=== PATIENT | female | born 2000 | race Hispanic/Latino ===

== ENCOUNTER 2024-05-19 21:31 | Emergency (ER) | payer SELFPAY ==
[2024-05-19 21:33] VITALS: BP 130/85
[2024-05-19 21:53] LABS: Urine Albumin Negative (Neg - Trace); Urine Bilirubin Negative (Negative); Urine Character Clear (Clear); Urine Color Straw; Urine Glucose Negative (Negative); Urine Ketone Negative (Negative); Urine Leukocyte Negative (Negative); Urine Nitrite Negative (Negative); Urine Occult Blood 1+ (Negative); Urine Specific Gravity 1.005 (<1.030); Urine Urobilinogen Negative (Neg - 1+)
[2024-05-19 21:54] LABS: HCG, Urine Qualitative Screen Positive
[2024-05-19 22:08] LABS: Urine Squamous Cell 0-2 /LPF (Few)
[2024-05-19 22:09] LABS: Urine Bacteria Few (Negative); Urine White Cell 0-2 /HPF (0-5)
--- NOTE | 2024-05-19 22:28 | ED.GENMED ---
History of Present Illness
<JJ Powers - Last Filed: 05/20/24 03:07>
General
Chief Complaint: Problems
Source: patient and computer customer support specialist
Time Seen by Provider: 05/19/24 21:56
Nursing documentation reviewed up to this point in time: agreed with
History of Present Illness
History of Present Illness:
Pt is a 23 y/o F who is seen with person investigator who presents with complaints of spotting x1hr. She had a positive test 2 days ago. The pt reported that she had vaginal bleeding that was more rapid and in a larger quantity than her normal
periods. She noticed some 'brown parts' and some brighter blood than normal. She normally has periods at regular intervals with varying amounts of blood. LMP was 03/26/24. She has associated headaches and intermittent dizziness and lightheadedness.
The pt reports that she has had diffuse abdominal pain for the past few days. The worst area of pain is epigastric and she feels 'shuffling'. The abdominal pain is described as a cramping sensation and is rated a 7/10 in severity. The abdominal pain
is worse when she is eating. The was unplanned and she is not taking any control.
Past History
<JJ Powers - Last Filed: 05/20/24 03:07>
Past History
ED Past Medical History: None
ED Past Surgical History: None
Social History
Tobacco: Non-smoker
Alcohol: None
Drug: None
Family History
Family History: Diabetes and Hypertension
Review of Systems
<JJ Powers - Last Filed: 05/20/24 03:07>
Review of Systems
Allergies reviewed?: Yes
Constitutional: Reports no symptoms
EENT: Reports no symptoms
Respiratory: Reports no symptoms
Cardiac: Reports no symptoms
ABD/GI: Reports abdominal pain
: Reports bleeding
Musculoskeletal: Reports no symptoms
Skin: Reports no symptoms
Neurological: Reports dizzy, headache and other (lightheadedness)
Endocrine: Reports no symptoms
Hematologic/Lymphatic: Reports no symptoms
Psychiatric: Reports no symptoms
Phy Exam
<JJ Powers - Last Filed: 05/20/24 03:07>
General Physical Exam
General Presentation: well appearing and no apparent distress
General age: appears stated age
General Skin: warm and dry
General Habitus: normal
General Mental: alert
General Hydration: appears well hydrated
ENT Exam
ENT Exam: EOMI, neck supple and normocephalic
Eye Exam
Eye Exam: PERRL, EOMI, cornea clear, conjunctiva normal and visual edmond normal
Cardiovascular Exam
Cardiovascular Exam: regular rate/rhythm, normal peripheral pulses and tachycardia
Pulmonary Exam
Pulmonary Exam: lungs clear, no respiratory distress, no rales, chest non tender, no crackles, no rhonchi, no stridor, no wheezing and no cough
Gastrointestinal Exam
Gastrointestinal Exam: normal bowel sounds, soft, non distended, no bruit and tender (Diffuse abdominal tenderness)
Neurological Exam
Neurological Exam: alert, oriented x3, CN II-XII intact, no motor deficits, normal reflexs, no sensory deficits and speech normal
Musculoskeletal Exam
Musculoskeletal Exam: full ROM, no edema and neuro vasc intact
Skin Exam
Skin Exam: normal color, warm/dry and no rash
Psychiatric Exam
Psychiatric Exam: normal mood/affect
Course
<JJ Powers - Last Filed: 05/20/24 03:07>
Orders/Labs/Results
Orders:
Orders
05/19/24 21:38
Test Result ONCE
05/19/24 21:42
HCG, Urine Qualitative Screen Urgent
Date Specimen was Collected: 05/19/24
Time Specimen was Collected: 21:38
Urinalysis Reflex To Culture Urgent
Date Specimen was Collected: 05/19/24
Time Specimen was Collected: 21:38
Urine Microscopic Reflex Cult Urgent
05/19/24 22:04
US W Transvaginal Urgent
Reason For Exam: spotting
05/19/24 22:42
Beta HCG Quantitative Urgent
Is this a screen?: No
05/19/24 22:43
0.9% Sodium Chloride 1000 ml [Nss] 1,000 ml IV BOLUS
05/20/24 00:14
Add On- LAB Urgent
Tests Added?: type and rh
05/20/24 00:24
Blood Group&Type Urgent
05/20/24 00:50
ABO2 Urgent
BBK Wristband Number:
Associate notified that ABO2 has been ordered: TRACEY
Date: 05/20/24
Time: 00:44
Pigment Weigher ID: [id number]
Abnormal Lab Results
05/19/24
21:42
Ur Occult Blood Reflex 1+ A
(Negative)
Urine RBC 3-6 A /HPF
(0-2)
Urine Bacteria (Reflex) Few A
(Negative)
Vital Signs
Initial and Last Documented VS:
Initial Vital Signs
Temp Pulse Resp BP Pulse Ox
98.6 F 102 16 130/85 98
05/19/24 21:33 05/19/24 21:33 05/19/24 21:33 05/19/24 21:33 05/19/24 21:33
Last Documented Vital Signs
Temp Pulse Resp BP Pulse Ox
98.5 F 75 18 102/59 100
05/19/24 21:33 05/20/24 01:46 05/20/24 01:46 05/20/24 01:46 05/20/24 01:46
<Sharad Calzada, - Last Filed: 05/21/24 21:51>
Orders/Labs/Results
Orders:
Orders
05/19/24 21:38
Test Result ONCE
05/19/24 21:42
HCG, Urine Qualitative Screen Urgent
Date Specimen was Collected: 05/19/24
Time Specimen was Collected: 21:38
Urinalysis Reflex To Culture Urgent
Date Specimen was Collected: 05/19/24
Time Specimen was Collected: 21:38
Urine Microscopic Reflex Cult Urgent
05/19/24 22:04
US W Transvaginal Urgent
Reason For Exam: spotting
05/19/24 22:42
Beta HCG Quantitative Urgent
Is this a screen?: No
05/19/24 22:43
0.9% Sodium Chloride 1000 ml [Nss] 1,000 ml IV BOLUS
05/20/24 00:14
Add On- LAB Urgent
Tests Added?: type and rh
05/20/24 00:24
Blood Group&Type Urgent
05/20/24 00:50
ABO2 Urgent
BBK Wristband Number:
Associate notified that ABO2 has been ordered: TRACEY
Date: 05/20/24
Time: 00:44
Pigment Weigher ID: [id number]
Abnormal Lab Results
05/19/24
21:42
Ur Occult Blood Reflex 1+ A
(Negative)
Urine RBC 3-6 A /HPF
(0-2)
Urine Bacteria (Reflex) Few A
(Negative)
Vital Signs
Initial and Last Documented VS:
Initial Vital Signs
Temp Pulse Resp BP Pulse Ox
98.6 F 102 16 130/85 98
05/19/24 21:33 05/19/24 21:33 05/19/24 21:33 05/19/24 21:33 05/19/24 21:33
Last Documented Vital Signs
Temp Pulse Resp BP Pulse Ox
98.5 F 75 18 102/59 100
05/19/24 21:33 05/20/24 01:46 05/20/24 01:46 05/20/24 01:46 05/20/24 01:46
Information
Weeks gestation: N/A
Location: N/A
<JJ Powers - Last Filed: 05/20/24 03:07>
MDM/Problems Addressed
Differential Diagnosis Includes:
Ectopic
Threatened
<JJ Powers - Last Filed: 05/20/24 03:07>
*Critical Care Note
Total Time (30-74mins, 75-104mins- exclusive of procedures): Not Applicable
<Sharad Calzada DO - Last Filed: 05/21/24 21:51>
*Radiology
Radiology exam reviewed: radiology read reviewed
*Pulse Oximetry
Patient hypoxic: no
<Sharad Calzada DO - Last Filed: 05/21/24 21:51>
Update Note
Update Note:
US PELVIS
Comparison: None.
IMPRESSION:
7 mm cystic structure within the endometrial canal with suggestion of a decidual reaction. No yolk sac or embryo appreciated. Findings likely represent an early IUP, however ectopic is still not entirely excluded. Recommend followup with
beta hCG and ultrasound as clinically indicated.
Normal sized ovaries.
No free fluid.
No adnexal masses.
Results faxed/electronically transmitted to the ER and radiology department at 11:59 PM ET.
Frank Huffman M.D.
This report has been electronically signed and verified by the Radiologist whose name is printed above.
ED Attending Note
<JJ Powers - Last Filed: 05/20/24 03:07>
-
Portions of this chart may have been created with voice recognition software.� Occasional wrong word or��sound alike� substitutions may have occurred due to the inherent limitations of voice recognition software.
<Sharad Calzada, DO - Last Filed: 05/21/24 21:51>
ED Attending Note
Patient seen and examined by attending physician: Yes
I performed the substantive portion of visit, reviewed & personally made and approve the management plan that is documented in note by myself or KIRSTIN.: Yes
ED Attending Note:
Pleasant 23-year-old female presents with . She states that she started spotting 1 hour prior to arrival. She states that there were several clots, which were red and brown in nature. She states that this is her first . She
denies any pain currently. She did have some abdominal pain over the past few days. Patient took a test 2 days ago which was positive. Patient has not seen POACHER OPERATOR. She states that the was unplanned. Denies any chest pain or
reports no current abdominal pain. Patient was seen in conjunction with the PA student. I have reviewed and agree with the history and treatment plan presented. On my independent physical exam, patient is awake, alert, and oriented x3, no acute
distress. Heart is regular rate and rhythm. Lungs are clear to auscultation bilaterally without wheezes rales or rhonchi. Abdomen is soft and nontender, nondistended. Moves all 4 extremities. Skin is warm and dry.
HPI performed with the help of [employer] video translation services.
I discussed the ultrasound findings as well as lab work with patient. She will follow-up with either POACHER OPERATOR or the fiberglass container winding operator at the [facility]. I will prescribe vitamins. She will follow-up with a repeat quant and ultrasound to
definitively rule out ectopic
Discharge Plan
Departure
Patient Disposition: Home (Routine Discharge)
Date of Disposition: 05/20/24
Time of Disposition: 01:48
Patient with high blood pressure during this ER visit?: Yes
Condition: Good
Discharge Problem:
Miscarriage, threatened, early
Instructions: Threatened Miscarriage (DC), BLOOD PRESSURE
Prescriptions:
New
400 mcg tablet,chewable
2 tab PO DAILY Qty: 60 2RF
No Action
cephalexin 500 mg capsule
500 mg PO Q8H Qty: 21 0RF
Referrals:
[facility] [Outside] - Next open appointment
[facility] [Outside]
Activity Restrictions/Additional Instructions:
Es importante que se realice un nuevo an�lisis de slim y nacho ecograf�a, seg�n lo conversado. Se le proporcion� nacho receta.
Fue un placer conocerlo y participar en moralez atenci�n. Esperamos que contin�e moralez recuperaci�n y bienestar.
Becka las instrucciones de estrella en moralez totalidad. Sin embargo, son para educaci�n general y es posible que no describan moralez diagn�stico exacto al momento del estrella. Se le convers� con informaci�n sobre moralez visita a la margot de emergencias y celestnio afecciones
m�dicas junto con la informaci�n de seguimiento correspondiente...
Si se lo indica, tome celestino medicamentos seg�n las instrucciones y lo que se indica en la documentaci�n del estrella.
Programe nacho milan de seguimiento seg�n las indicaciones. Llame para programar nacho milan
Regrese al departamento de emergencias ante CUALQUIER cambio, persistencia o empeoramiento de los s�ntomas. Si alguno de celestino s�ntomas no mejora, persiste o se agrava dentro de las 6 a 12 horas, regrese al departamento de emergencias para recibir
atenci�n adicional.
Por favor, regrese al departamento de emergencias si presenta dolor de davidson, dolor o rigidez en el sarah, fiebre mayor a 100.4 �F, dolor en el pecho, dificultad para respirar, n�useas persistentes, v�mitos, dificultad para hablar, dificultad para
caminar, entumecimiento u hormigueo, debilidad, signos de infecci�n o cualquier otro s�ntoma que le preocupe.
Si tiene alguna pregunta o inquietud, no dude en llamar al [facility] al o enviarme un correo electr�angelia directamente a [email or web address]
It is important that you follow-up with a repeat blood test and ultrasound as discussed. A prescription was provided.
It was a pleasure meeting you and taking part in your care. We hope for your continued healing and wellness.
Please read discharge instructions in their entirety. However, they are for general education and may not describe your exact diagnosis at discharge. Information on your ER visit and medical conditions were discussed with you along with appropriate
follow up information...
If indicated, please take your medications as instructed and indicated on discharge paperwork.
Please schedule a follow up appointment as directed. Call to schedule an appointment
Please return to the emergency department with ANY change in, persisting, or worsening of symptoms. If any of your symptoms do not improve, or persist, or become more severe within 6-12 hours, please return to the emergency department for further
care.
Please return to the emergency department if you develop a headache, neck pain/stiffness, fever greater than 100.4F, chest pain, shortness of breath, persistent nausea, vomiting, slurred speech, difficulty walking, numbness/tingling, weakness, signs
of infection or any other symptoms that are worrisome to you.
If you have any questions or concerns please do not hesitate to call the Hospital at or E-mail me directly at [email or web address]
Interventions
Interventions:
*Risk Screen - Suicide Last Done: 05/19/24 21:33
*General Assessment Last Done: 05/19/24 21:33
*Neglect/Abuse Screening Last Done: 05/19/24 21:33
ED- Fall Risk Assessment Last Done: 05/20/24 01:59
*ED COVID-19 Vaccine History Last Done: 05/19/24 21:33
*Nursing Disposition Last Done: 05/20/24 01:59
ED-Female Genitourinary Assessment Last Done: 05/19/24 22:45
Discharge Date and Time
Discharge Date/Time: 05/20/24 01:59
Print Language: NAMIBIAN
[2024-05-19] MEDS: NSS 1000 IV (22:43)
[2024-05-20 01:46] VITALS: BP 102/59
== END 2024-05-20 01:59 | disposition home or self-care (01) ==
LOC: EMR 21:31
PROVIDERS: Emergency Medicine; EMERGENCY PHYSICIAN Student in an Organized Health Care Education/Training Program
DX: O20.0 Threatened abortion (principal); Z3A.01 Less than 8 weeks gestation of pregnancy; R03.0 Elevated blood-pressure reading, without diagnosis of hypertension
CPT/HCPCS: 99285; 96360; 76801; 76817; 81003; 81015; 81025; 84702; 86900; 86901

== ENCOUNTER 2024-05-20 13:01 | Emergency (ER) | payer SELFPAY ==
[2024-05-20 13:14] VITALS: BP 112/65
[2024-05-20 13:42] LABS: % Basophils 0.4 % (0-2); % Eosinophils 0.9 % (0-6); % Immature Granulocytes 0.3 % (0-0.5); % Lymphocytes 15.6 % (20.5-51.1); % Neutrophils 78.8 % (42.2-75.2); Absolute Eosinophils 0.1 10^3/uL (0-0.7); Absolute Lymphocytes 1.6 10^3/uL (1.2-3.4); Absolute Monocytes 0.4 10^3/uL (0.1-0.6); Hemoglobin 12.8 g/dL (12.0-16.0); Mean Corp Hgb Conc. 34.6 g/dL (33.0-37.0); Mean Corpuscular Hgb 29.2 pg (27.0-31.0); Mean Corpuscular Volume 84.5 fL (81.0-99.0); Mean Platelet Volume 9.6 fL (7.4-10.4); Nucleated Red Blood Cells % 0 %; Platelet Count 267 10^3/uL (130-400); Red Blood Cell Count 4.38 10^6/uL (4.20-5.40); Red Cell Dist. Width 12.4 % (11.5-14.5); White Blood Cell Count 10.1 10^3/uL (4.8-10.8)
[2024-05-20 14:05] LABS: ALT (SGPT) 16 U/L (0-35); AST (SGOT) 27 U/L (14-36); Albumin 4.9 g/dl (3.5-5.0); Alkaline Phosphatase 62 U/L (38-126); Blood Urea Nitrogen 10 mg/dl (7-17); Calcium 9.5 mg/dl (8.4-10.2); Carbon Dioxide 18 mmol/L (22-30); Chloride 102 mmol/L (98-107); Glucose 121 mg/dl (70-99); Potassium 4.3 mmol/L (3.5-5.1); Sodium 139 mmol/L (135-145); Total Bilirubin 0.9 mg/dl (0.2-1.3); Total Protein 7.8 g/dl (6.3-8.2); eGFR > 60.00
--- NOTE | 2024-05-20 15:39 | ED.GENMED ---
History of Present Illness
General
Chief Complaint: Problems
Source: patient
Exam Limitations: none
Time Seen by Provider: 05/20/24 15:38
Nursing documentation reviewed up to this point in time: agreed with
History of Present Illness
History of Present Illness:
24 y/o F
unknown weeks preg
was here yesterday for vag spotting, had beta 2100
rh status not known
she had more bleeding today (only used 1 pad) with 1 clot on the toilet paper
so she came in
she has no OB
uninsured
denies abd pain, fever, chills
Past History
Past History
ED Past Medical History: None
ED Past Surgical History: None
Social History
Tobacco: Non-smoker
Alcohol: None
Drug: None
Family History
Family History: Diabetes and Hypertension
Review of Systems
Review of Systems
Allergies reviewed?: Yes
All Other Systems: Not applicable
Phy Exam
Physical Exam
Physical Exam:
GENERAL: Alert , in no apparent distress
EYE: pupils equal and reactive
NECK: Supple
ENT: o/p clr, mmm.
CARDIAC: Regular rate and rhythm .
LUNGS: Clear breath sounds bilaterally, no acute respiratory distress, no wheezes/rales/rhonchi
ABDOMEN: Soft, mild lower abdominal tenderness, suprapubic region no r/g, no cvat, normal bowel sounds
:os closed
mild blood in vault; no active bleeding
NEUROLOGICAL: Alert and oriented, no focal neuro deficits
SKIN: Warm and dry, skin intact.
MUSCULOSKELETAL: No edema, well perfused. neg wilmar's sign
PSYCH: Normal and appropriate interaction.
Course
Orders/Labs/Results
Orders:
Orders
05/20/24 13:28
Complete Blood Count/With Diff Urgent
Comprehensive Metabolic Panel Urgent
HCG, Beta Quantitative [Beta HCG Quantitative] Urgent
Is this a screen?: No
05/20/24 15:15
US Transvaginal Only Urgent
Reason For Exam: PVB; eval ectopic
05/20/24 16:02
ABO [Blood Group&Type] Urgent
05/20/24 17:39
Ketorolac [Toradol] 15 mg .ROUTE .STK-MED ONE
05/20/24 17:40
Ketorolac [Toradol] 15 mg IM NOW STA
Ketorolac [Toradol] 15 mg IV NOW STA
05/20/24 17:57
Urinalysis Reflex To Culture Urgent
Date Specimen was Collected: 05/20/24
Time Specimen was Collected: 17:48
Urine Microscopic Reflex Cult Urgent
Abnormal Lab Results
05/20/24 05/20/24
13:28 17:57
Absolute Neuts (auto) 8.0 H 10^3/uL
(1.4-6.5)
Neutrophils % 78.8 H %
(42.2-75.2)
Lymphocytes % 15.6 L %
(20.5-51.1)
Carbon Dioxide 18 L mmol/L
(22-30)
Creatinine 0.5 L mg/dL
(0.6-1.0)
Glucose 121 H mg/dl
(70-99)
Urine Ketones 2+ A
(Negative)
Ur Occult Blood Reflex 4+ A
(Negative)
Leukocyte Esterase Rfl Trace A
(Negative)
Urine RBC 26-30 A /HPF
(0-2)
Urine Bacteria (Reflex) Few A
(Negative)
05/20/24 13:28
05/20/24 13:28
Vital Signs
Initial and Last Documented VS:
Initial Vital Signs
Temp Pulse Resp BP Pulse Ox
98.6 F 81 18 112/65 100
05/20/24 13:14 05/20/24 13:14 05/20/24 13:14 05/20/24 13:14 05/20/24 13:14
Last Documented Vital Signs
Temp Pulse Resp BP Pulse Ox
98.6 F 92 18 103/59 99
05/20/24 13:14 05/20/24 17:37 05/20/24 17:37 05/20/24 17:37 05/20/24 17:37
Information
Weeks gestation: Weeks:
Location: Location:
MDM/Problems Addressed
Differential Diagnosis Includes:
vag bleed, ectopic, miscarriage
MDM/Problems Addressed:
24-year-old G1, P0 LMP 8�1 presents for vaginal bleeding. Patient was seen last night for the same, spotting and had an ultrasound showing a something within the uterus that was a single small anechoic structure, representing a 5-week 3-day size
but there is no pole or cardiac motion or yolk sac. It was concerned that patient could have a nonviable versus early ectopic
Patient went home and had some more spotting today and that is why she is here. Her beta last night was 2100 and today is 1500Thus suggesting a miscarriage. Patient is very anxious and asking about whether the sac was passed. Given her lack of
follow-up I will repeat the ultrasound and add an ABO and Rh
---
pt's repeat US no longer shows the intrauterine structure suggesting complete miscarriage
her abo is rh+
os closed
vitals stable
counseled via lang line
also having suprapubic pressure and urine is minimally positive
has had some pressure with uriantion
will cover with keflex
*Critical Care Note
Total Time (30-74mins, 75-104mins- exclusive of procedures): Not Applicable
ED Attending Note
-
Portions of this chart may have been created with voice recognition software.� Occasional wrong word or��sound alike� substitutions may have occurred due to the inherent limitations of voice recognition software.
Discharge Plan
Departure
Patient Disposition: Home (Routine Discharge)
Date of Disposition: 05/20/24
Time of Disposition: 17:19
Patient with high blood pressure during this ER visit?: No
Condition: Fair
Covid-19: Not Applicable
Discharge Problem:
Complete miscarriage
Instructions: Miscarriage (DC)
Prescriptions:
New
cephalexin 500 mg capsule
500 mg PO Q8H Qty: 21 0RF
No Action
400 mcg tablet,chewable
2 tab PO DAILY Qty: 60 2RF
Referrals:
NONE,* [Family Provider] -
Stand Alone Forms: Return to Work
Activity Restrictions/Additional Instructions:
Unfortunately you had a miscarriage. You could continue to have some bleeding. It can be heavier at times but it should resolve over the next couple of days. You can take Tylenol or ibuprofen for pain. Follow-up with the and [facility] and
make sure that the hormone level drops all the way down to 0. You could also take a test in the next 2 weeks and make sure it has returned negative. This will ensure that there is no additional testing necessary. Wait at least 1 regular
cycle before trying to have another . Return to the ER for severe pain, heavy bleeding (mroe than 1 pad per hour for 2 hours in a row) or any concerns
Desgraciadamente tuviste un aborto espont�ashley. Podr�a seguir sangrando un poco. A veces puede ser m�s intenso, elias deber�a desaparecer en los pr�ximos d�as. Puede mich Tylenol o ibuprofeno para el dolor. Carol un seguimiento con la cl�humberto
[facility] y aseg�rese de que el nivel hormonal baje completamente a 0. Tambi�n puede hacerse nacho prueba de embarazo en las pr�ximas 2 semanas y asegurarse de que haya resultado negativa. [place] garantizar� que no mando necesarias pruebas adicionales.
Espere al menos 1 ciclo regular antes de intentar tener otro embarazo. Regrese a la margot de emergencias si tiene dolor intenso, sangrado abundante (m�s de 1 toalla sanitaria por hora parveen 2 horas seguidas) o cualquier inquietud.
Interventions
Interventions:
*Risk Screen - Suicide Last Done: 05/20/24 13:20
*General Assessment Last Done: 05/20/24 13:20
*Neglect/Abuse Screening Last Done: 05/20/24 13:20
*ED COVID-19 Vaccine History Last Done: 05/20/24 13:20
*Nursing Disposition Last Done: 05/20/24 18:04
ED-Female Genitourinary Assessment Last Done: 05/20/24 16:45
Discharge Date and Time
Discharge Date/Time: 05/20/24 18:05
Print Language: MOHAWK
[2024-05-20 16:38] VITALS: BP 91/51
[2024-05-20 17:37] VITALS: BP 103/59
[2024-05-20] MEDS: TORADOL 15 MG IV (17:43)
[2024-05-20 18:09] LABS: Urine Albumin Negative (Neg - Trace); Urine Bilirubin Negative (Negative); Urine Character Clear (Clear); Urine Color Straw; Urine Glucose Negative (Negative); Urine Ketone 2+ (Negative); Urine Leukocyte Trace (Negative); Urine Nitrite Negative (Negative); Urine Occult Blood 4+ (Negative); Urine Urobilinogen Negative (Neg - 1+)
[2024-05-20 18:17] LABS: Urine Bacteria Few (Negative); Urine Red Blood Cell 26-30 /HPF (0-2); Urine White Cell 0-2 /HPF (0-5)
== END 2024-05-20 18:05 | disposition home or self-care (01) ==
LOC: EMR 13:01
PROVIDERS: Emergency Medicine; Physician Assistant; EMERGENCY PHYSICIAN Student in an Organized Health Care Education/Training Program
DX: O03.9 Complete or unspecified spontaneous abortion without complication (principal); K52.9 Noninfective gastroenteritis and colitis, unspecified
CPT/HCPCS: 99284; 96374; 76817; 80053; 81003; 81015; 84702; 85025; 86900; 86901